=== PATIENT | female | born 1995 | race African-American/Black ===

== ENCOUNTER 2022-10-08 13:11 | Emergency (ER) | payer MEDICARE, MEDICAID ==
[~2022-10-08] VITALS: Ht 160 cm; Wt 82.0 kg
[2022-10-08 13:18] VITALS: BP 130/61
== END 2022-10-08 15:04 | disposition home or self-care (01) ==
LOC: ER 13:11
DX: R25.1 Tremor, unspecified (principal); F84.0 Autistic disorder
CPT/HCPCS: 99281